=== PATIENT | female | born 1975 | race Caucasian/White ===

== ENCOUNTER 2017-11-22 11:09 | Outpatient (CLI) | payer BC ==
--- NOTE | 2017-11-22 13:06 | RAD ---
TWO VIEWS SOFT TISSUE NECK: History: Thyroid area pain and swelling. Comparison: None. FINDINGS: No prevertebral soft tissue swelling. Cervical spine intervertebral body height is maintained. No fracture. Epiglottis has a normal caliber. Pre-epiglottic fat is preserved. Aerodigestive tract is patent. No malalignment preserved. Internal fixation hardware along the left clavicle is noted. IMPRESSION: 1. No radiopaque foreign body. 2. No prevertebral soft tissue swelling. 3. Further interrogation with post contrast soft tissue neck CT is recommended. POS: [facility]
== END 2017-11-22 11:10 | disposition home or self-care (01) ==
LOC: SCSRAD 11:09
PROVIDERS: ATTEND Family Medicine
DX: R07.0 Pain in throat (principal)
CPT/HCPCS: 70360

== ENCOUNTER 2019-05-08 14:03 | Outpatient (CLI) | payer BC ==
--- NOTE | 2019-05-08 15:24 | ULT ---
THYROID ULTRASOUND: 05/08/19 HISTORY: Goiter. Hypothyroidism. COMPARISON: None. TECHNIQUE: Sagittal transverse imaging of the thyroid gland is performed. FINDINGS: There is diffuse heterogeneity throughout the thyroid gland. Thyroid isthmus measures 1 cm. Right thy roid lobe measures 1.5 x 4.4 x 1.6 cm. Left thyroid lobe measures 4.4 x 1.5 x 1.4 cm. No solid or cys tic nodules throughout the thyroid gland. IMPRESSION: Diffuse heterogeneous thyroid gland. POS: [facility]
== END 2019-05-08 14:04 | disposition home or self-care (01) ==
LOC: SCSULT 14:03
PROVIDERS: ATTEND Family Medicine
DX: E04.9 Nontoxic goiter, unspecified (principal)
CPT/HCPCS: 76536

== ENCOUNTER 2021-08-19 08:59 | Outpatient (CLI) | payer BC | END 2021-08-19 09:00 | disposition home or self-care (01) | LOC: BICMAMMO 08:59 | PROVIDERS: ATTEND Family Medicine | DX: Z12.31 Encounter for screening mammogram for malignant neoplasm of breast (principal); Z80.3 Family history of malignant neoplasm of breast | CPT/HCPCS: 77063; 77067 ==